=== PATIENT | male | born 1995 | race Caucasian/White ===

== ENCOUNTER 2019-01-08 01:23 | Outpatient (CLI) | payer OTHER, BC, SELFPAY ==
--- NOTE | 2019-01-08 14:00 | DI.US_ITS ---
EXAM: US HERNIA CLINICAL HISTORY: RT INGUINAL HERNIA K40.90, NO RECENT TRAUMA, RECENT HEAVY LIFTING, NOTICED LUMP 2 WEEKS AGO, H/O HERNIA AT 1 YEARS OLD TECHNIQUE: Ultrasound performed using standard protocol. COMPARISON: No exams were available for comparison FINDINGS: There is a fatty-containing inguinal hernia measuring 2 x 0.6 x 2.8 cm. No fluid is seen. There are no signs to suggest strangulation. IMPRESSION: Small right inguinal hernia containing fat.
== END 2019-01-08 01:43 ==
PROVIDERS: PCP Nurse Practitioner Family; Visit Provider Nurse Practitioner Family
DX: K40.90 Unilateral inguinal hernia, without obstruction or gangrene, not specified as recurrent (principal)
CPT/HCPCS: 76857

== ENCOUNTER 2019-01-22 08:51 | Day surgery (SDC) | payer OTHER, BC, SELFPAY ==
[2019-01-22] VITALS (9 sets, daily range): BP systolic 138–155; BP diastolic 61–103; PULSE 52–75; RESP 12–20; TEMP 36.1–36.6; O2SAT 95–100
[2019-01-22] MEDS: Lactated Ringers 1,000 ML 80 ML IV (09:41)
--- NOTE | 2019-01-22 10:29 | PDOC.DSDIS_ITS ---
Discharge Plan Disposition Patient Disposition: HOME Condition: Good Discharge Details Reason For Visit: Right inguinal hernia Attending Provider: Vaishali Woo Primary Care Provider: Chris Guerrero Home Meds and New Rx's Prescriptions: New hydrocodone-acetaminophen 5-325 mg tablet 1 - 2 tab PO Q6H PRN (Reason: pain) Qty: 20 RF: 0 Discharge Instructions Additional Instructions: The top bandage can be removed tomorrow. The steri strips will usually stick for about a week. When the edges start to curl up, they can be removed. It is okay to shower tomorrow, the water can run over the steri strips Do not swim or soak in a tub for two weeks Call for any concerns including fever, increased pain, vomiting, incision redness or drainage. Do not lift more than 15 pounds for four weeks. Walking and stairs are fine. Do not drive if on narcotic pain meds or if limited by pain. May use Tylenol alternating with ibuprofen for pain control. Ice is also an option. The maximum dose for Tylenol is 4000 mg/day. May use ibuprofen 800 mg every 8 hours as needed. If concerned about constipation, you may use a stool softener or milk of magnesia. Referrals: Vaishali Woo MD [ [facility] STAFF PHYSICIAN] - (Return in 10-14 days for a postoperative check) Activity:: Do not lift more than 15 pounds Remove Dressings/Wound Care:: 24 hours Shower/Bathe:: 24 hours Diet:: As Tolerated DS: Diagnosis Discharge Diagnosis (1) Right inguinal hernia: Status: Acute
[2019-01-22] MEDS: ceFAZolin 2 GM/50 ML BAG IVPB (10:40)
[2019-01-22] MEDS: Bupivacaine 0.25% Pres-Free 30 ML VIAL (10:47)
[2019-01-22] MEDS: Bupivacaine LIPOSOME/PF 133 MG/10 ML VIAL IJ (10:47)
[2019-01-22] MEDS: fentaNYL 100 MCG/2 ML VIAL IVP (13:00)
--- NOTE | 2019-01-22 13:11 | ROE_ITS ---
DATE OF PROCEDURE: January 22, 2019 PREOPERATIVE DIAGNOSIS: Recurrent right inguinal hernia. POSTOPERATIVE DIAGNOSIS: Same. PROCEDURE: Right inguinal hernia repair with mesh. SURGEON: Vaishali Woo M.D. PINSETTER MECHANIC HELPER: Joy Higuera PA-C ANESTHESIA: General, local and TAP block. INDICATIONS: This is a 23-year-old man who has a moderate-sized, reducible right inguinal hernia. He had this repaired at age 1 or 1. PROCEDURE: He was placed supine on the operating table and after induction of general anesthetic, had a right TAP block placed by Anesthesia. His right groin was then prepped and draped sterilely. The prior incision was identified and infiltrated with 1% Lidocaine with epinephrine. An incision was made and the subcutaneous tissue divided with cautery down to the external oblique fascia. A vein encountered was clamped, divided and ligated with a #3-0 Vicryl tie. The tissue was not completely normal, consistent with his prior surgery. The planes were somewhat scarred, although still definitely identifiable. A small incision was made in the external oblique fascia and extended bluntly with Metzenbaum scissors to the external inguinal ring. This was also extended laterally. The spermatic cord was dissected up from the floor of the inguinal canal at the level of the pubic tubercle. Again, it was somewhat slower than normal due to scarring. The spermatic cord was encircled with a [place] drain. Dissection revealed preperitoneal fat that had herniated through the internal ring with a small peritoneal sac associated. This was dissected up into the internal ring and reduced. A medium mesh plug was sutured to the inguinal ligament, medially and up to the transversus abdominis muscle. A flat sheet of mesh was then placed on the floor of the inguinal canal and sutured in position in standard Toya fashion. There was good hemostasis. The external oblique fascia was closed with a running #3-0 Vicryl stitch, as was Kiran's fascia and then the skin closed with a running #4-0 Monocryl subcuticular stitch. He tolerated the procedure well and was stable to recovery. cc: Chris Guerrero N.P.
== END 2019-01-22 14:55 | disposition home or self-care (01) ==
PROVIDERS: PCP Nurse Practitioner Family; Visit Provider Surgery
PROC: (CPT 49520; principal; 2019-01-22 11:00)
DX: K40.91 Unilateral inguinal hernia, without obstruction or gangrene, recurrent (principal); G89.18 Other acute postprocedural pain
CPT/HCPCS: 49520; 76942; C1781; J0690; J1885; J2405; J3010

== ENCOUNTER 2021-08-30 03:17 | Outpatient (CLI) | payer OTHER, SELFPAY ==
[2021-08-30 11:23] LABS: Source Nasal/Nares
[2021-08-30 14:01] LABS: COVID-19 PCR Negative (Negative)
== END 2021-08-30 03:18 | disposition home or self-care (01) ==
PROVIDERS: PCP Nurse Practitioner Family; Visit Provider Surgery
DX: Z20.822 Contact with and (suspected) exposure to COVID-19 (principal); Z01.818 Encounter for other preprocedural examination
CPT/HCPCS: 87635

== ENCOUNTER 2021-09-01 09:45 | Day surgery (SDC) | payer OTHER, SELFPAY ==
[2021-09-01] VITALS (9 sets, daily range): BP systolic 102–139; BP diastolic 62–93; PULSE 53–73; RESP 13–16; TEMP 36.1–36.5; O2SAT 99–100; BMI 21.4
--- NOTE | 2021-09-01 06:54 | W.PM.OP ---
Date of service: 09/01/21 Time of Service: 11:51 Operative Note Operative Note DATE OF PROCEDURE: 09/01/21 PRE-OP DIAGNOSIS: Left inguinal hernia Left indirect inguinal hernia PROCEDURE: Left inguinal hernia repair with mesh SURGEON: Basilia Hremosillo BAND REAMER MACHINE OPERATOR: Joy Higuera Refer to Anesthesia Record ESTIMATED BLOOD LOSS: 15 PATHOLOGY: none sent COMPLICATIONS: None Patient was transported to: PACU Patient's condition: stable Implants: BARD Mesh: LOT- [id number] REF- [id number] 2025-10-31 Indications: Mr. Busch is a healthy 26-year-old male who comes in with a left inguinal hernia for the last year.? It has slowly gotten larger and now has become uncomfortable.? He has had multiple surgeries in the past including 2 right inguinal hernia repairs.? He has never had any issues with the anesthesia.? We discussed the procedure in detail as well as the risks, benefits and complications.? I reviewed a nerve block with him as well as pain control after surgery. Risks, benefits and complications have been reviewed. Complications include but are not limited to bleeding, infection, injury to vas, vessels and nerves, injury to bowel and adverse reaction to medications. Questions were entertained and answered to their satisfaction and they wished to proceed. Proceed with left inguinal hernia repair with mesh Findings: indirect hernia Procedure Description: After informed consent was obtained the patient was taken to the operating room and placed in a supine position. Monitors and SCDs were applied and a timeout was done. The patient's name, date of , procedure type, procedure site, allergies to medications, preoperative antibiotic, and DVT prophylaxis were all reviewed. Fire risk was assessed. Next anesthesia did a tap block on the left side under ultrasound guidance. Please see their separate dictation. Once anesthesia was done the abdomen was prepped and draped in a sterile surgical fashion. 0.25% Marcaine was injected into the dermis in the left lower quadrant. An incision was made with a 15 blade in the left lower quadrant. Dissection was done with cautery through the subcutaneous tissues and Kiran's fascia down to the external oblique fascia. The external ring was identified and the external oblique fascia was opened sharply through the external ring. The cut fascia was grasped with hemostats the cord structures were identified and a Ant drain was placed around them. The ilioinguinal nerve was identified and cut. The cremasteric muscle was dissected away from the cord structures using both cautery and blunt dissection. A hernia sac was identified and removed from the cord structures using blunt dissection. The hernia sac was suture ligated and amputated. The remnant was pushed back into the peritoneum. A flat piece of mesh was then attached to the lacunar ligament using a 2-0 Prolene double armed suture. The mesh was secured laterally and medially with a 2-0 Prolene, with a running suture. The tails of the mesh were wrapped around the cord structures effectively cinching down the internal ring. Once the mesh was secured the tissues were irrigated with some normal saline. No bleeding was identified. The external oblique fascia was re-approximated using 2-0 Vicryl running suture. The Kiran's fascia was re-approximated using interrupted 3-0 Vicryl. The dermis was re-approximated with a running 4-0 Monocryl. The skin was cleaned and dried and skin affix was applied. The patient was woken up and taken back to recovery in stable condition. There were no immediate complications. Sponge, instrument and needle counts were correct at the end of the case x2.
--- NOTE | 2021-09-01 06:56 | PDOC.DSDIS_ITS ---
Discharge Plan Disposition Patient Disposition: HOME Condition: Good Discharge Details Reason For Visit: LIH repair Attending Provider: Basilia Hermosillo Primary Care Provider: Chris Guerrero Home Meds and New Rx's Prescriptions: No Action No Known Home Meds Discharge Instructions Instructions: Open Herniorrhaphy (DC) Additional Instructions: Activity at Home after surgery: 1. Make sure you walk outside at least 4 times per day 2. You should be able to climb a flight of stairs 3. No driving while in pain or taking pain medications 4. No strenuous activity or heavy lifting for 4 weeks (open surgery) Diet, Nutrition, & wound healin. Avoid alcohol until after you are recovered from your surgery 2. Make sure to eat plenty of lean protein (meat, fish, eggs, cottage cheese, beans) 3. Eat a variety of fruits and vegetables. Eat plenty of high fiber foods to avoid constipation. 4. Drink plenty of liquids to stay hydrated and avoid constipation Pain Medications: 1. Tylenol 650mg every 6 hours as needed and Ibuprofen 600 mg every 6 hours as needed. You may alternate between the 2 medications every 3 hours 2. If a narcotic has been prescribed take as directed only for breakthrough pain For Constipation: 1. Take Milk of Magnesia or MiraLax as needed for constipation Other: 1. You may shower daily. Do not scrub the incisions 2. Do not soak the incisions for 1 week 3. You may alternate ice and heat as needed for pain and swelling Wound Care: 1. Keep the incisions clean and dry Please call our office if you develop: 1. Fevers >101.5 2. Nausea or Vomiting 3. Worsening pain 4. Redness and thick discharge from the wounds If after hours please call the Hospital at and ask to speak to the on-call surgeon Referrals: Basilia Hermosillo MD [ [facility] STAFF PHYSICIAN] - Activity:: see above Remove Dressings/Wound Care:: Do Not Remove Shower/Bathe:: 24 hours Diet:: As Tolerated Discharge Orders Discharge Orders: Discharge Order (Routine); Ordered 09/01/21 Ordered By: Basilia Hermosillo
[2021-09-01] MEDS: Celecoxib 200 MG CAP PO (10:14)
[2021-09-01] MEDS: Gabapentin 300 MG CAP PO (10:14)
[2021-09-01] MEDS: Acetaminophen 500 MG TAB 1000 MG PO (10:14)
[2021-09-01] MEDS: Lactated Ringers 1,000 ML 80 ML IV (10:27)
--- NOTE | 2021-09-01 10:29 | W.ANESPRE ---
General Info Date of Service Date Performed: 09/01/21 Height: 5 ft 7 in Weight: 62 kg Body Mass Index (BMI): 21.4 Surgical Procedure: Operation Date: 09/01/21 11:10 Proposed Procedure Side Surgeon p Herniorrhaphy Inguinal w/Mesh Left Basilia Hermosillo MD Meds Allergies and Home Medications Allergies Allergy/AdvReac Type Severity Reaction Status Date / Time No Known Allergies Allergy Verified 09/01/21 10:03 Home Medication Medication Instructions Recorded Unknown [No Known Home Meds] 08/17/21 Current Visit Medications: Current Medications Generic Name Dose Route Start Last Admin Trade Name Freq PRN Reason Stop Dose Admin Acetaminophen 1,000 mg 09/01/21 06:00 09/01/21 10:14 Acetaminophen 500 Mg Tab PO 09/30/21 23:59 1,000 mg PREOP TAMIKA Administration Celecoxib 200 mg 09/01/21 06:00 09/01/21 10:14 Celecoxib 200 Mg Cap PO 09/30/21 23:59 200 mg PREOP TAMIKA Administration Gabapentin 300 mg 09/01/21 06:00 09/01/21 10:14 Gabapentin 300 Mg Cap PO 09/30/21 23:59 300 mg PREOP TAMIKA Administration Ringer's Solution 1,000 mls @ 80 mls/hr 09/01/21 06:00 09/01/21 10:27 IV 09/30/21 23:59 80 mls/hr INFUSION TAMIKA Administration Cefazolin Sodium/Dextrose 2 gm in 50 mls @ 100 mls/hr 09/01/21 06:00 Ancef Duplex IVPB 09/30/21 23:59 PREOP TAMIKA Ondansetron HCl 4 mg/ Sodium 52 mls @ 200 mls/hr 09/01/21 06:57 Chloride IVPB Q6H PRN PRN IV Miscellaneous Supplies 1 each 09/01/21 06:00 Iv Access IV 09/30/21 23:59 DIRECTED TAMIKA Sodium Chloride 0 ml 09/01/21 06:00 Normal Saline Flush 10 Ml Syr IV 09/30/21 23:59 PRN PRN Sodium Chloride 0 ml 09/01/21 06:00 Normal Saline 10 Ml Vial IJ 09/30/21 23:59 DIRECTED PRN Sterile Water 0 ml 09/01/21 06:00 Water,Injection,Sterile 10 Ml Vial IJ 09/30/21 23:59 DIRECTED PRN Tramadol HCl 50 mg 09/01/21 06:57 Tramadol 50 Mg Tab PO Q6H PRN PRN Pain PFSH Active Problems Active Problems: Problem Status Onset Code Left inguinal hernia K40.90 Medical History Medical History ACTH deficiency pt. denies this Hypertension Hypospadias in male Pilonidal cyst Postop check Right inguinal hernia Smoking Vesico-ureteral reflux Surgical History Surgical History Excision, Pilonidal Cyst (10/11/17) History of right inguinal hernia repair Repair, Hypospadious Tobacco Smoking/Tobacco Use Status: Current every day Tobacco Type: cigarettes Smoking cigarettes per day: 20 Alcohol Alcohol Intake: current Alcohol intake frequency: a few times a week Alcohol type: beer Substance Use Substance use: Daily Substance use type: marijuana Details: Instructed not use the moring of surgery. Smoked marijuana yesterday 08.31.21 Vital Signs and Lab Results Vital Signs Most Recent Vital Signs in EMR: Most Recent Vital Signs Temp Pulse Resp BP Pulse Ox 36.5 C 73 16 139/93 H 99 09/01/21 09:59 09/01/21 09:59 09/01/21 09:59 09/01/21 09:59 09/01/21 09:59 Lab Results Blood Type / Crossmatch: No Data to Display Complete Blood Count: No Data to Display Complete Metabolic Panel: No Data to Display Liver Function Panel: No Data to Display Coagulation Panel: No Data to Display Cardiac Panel: No Data to Display Arterial Blood Gas: No Data to Display Venous Blood Gas: No Data to Display Pancreas Panel: No Data to Display Thyroid Panel: No Data to Display Infectious Disease: Coronavirus (COVID-19)(PCR) Negative (Negative) 08/30/21 10:40 Coronavirus 2019 Source Nasal/Nares 08/30/21 10:40 Blood Cultures: No Data to Display Toxicology Panel: No Data to Display Anesthesia Assessment and Plan Anesthesia History Personal History: Delayed Emergence Family History: No Family History of Anesthesia Complications Exercise Tolerance Exercise Tolerance: Metabolic Equivalents>4 Pertinent Negatives Pertinent Negatives: No Symptoms of GERD, No Major Cardiovascular Symptoms or Complaints and No Major Pulmonary Symptoms or Complaints Cardiac & Pulmonary Exam Cardiac Exam: Normal S1/S2 Heart Sounds Pulmonary Exam: Clear Bilateral Breath Sounds Implantable Cardiac Device Does patient have a Pacemaker or an ICD?: No Airway Exam Known Difficult Airway: No Mallampati Class: 1 Mouth Opening: Normal (> 3cm) Thyromental Distance: Greater than 3 cm Facial Hair: Full Don Neck Range of Motion: Full ROM Neck Circumference: Normal Teeth Condition: Normal Dentition ASA Classification ASA Score: ASA 2 Emergency Case?: No NPO Status NPO Status: NPO Clears >2 hours, Solids >8 hours Anesthesia Plan Resuscitation Status: Full Code Anesthesia Technique: General Anesthesia Airway Planned: LMA Pain Management: Surgeon and patient request nerve block Monitors Used: Standard Monitors
[2021-09-01] MEDS: ceFAZolin 2 GM/50 ML BAG IVPB (10:50)
--- NOTE | 2021-09-01 11:07 | W.ANESNERVE ---
Nerve Block Single Injection Procedure Date and Time Date Performed: 09/01/21 Procedure Start: 10:58 Location Where Procedure Performed Procedure Location: Operating Room Procedure Stop: 11:04 Reason Performed: Postoperative Analgesia Requesting Provider: Basilia Hermosillo Timeout Performed Timeout Performed: Yes Monitoring Used ECG, Blood Pressure, SpO2 and ETCO2 Sterility Sterility: Hand Hygiene, Surgical Cap, Surgical Mask, Sterile Gloves, Sterile Drape/Sheet and Chlorhexidine Sedation Given During Procedure Sedation Given (Indicate Dose Given): No Sedation given Patient Mental Status Patient Mental Status: Performed under general anesthesia Nerve Block 1st Nerve Block: Laterality: Left Block Type: TAP Unilateral Needle / Catheter Used: 100mm SonoPlex II Local Anesthetic Bolus (Indicate Dose Given): None and Bupivacaine 0.375% Dose:: 30 mL Additives (Indicate Dose Given): Precedex Dose:: 30 mcg Ultrasound: Sterile probe cover and gel used Ultrasound Image Saved?: Yes Nerve Stimulator: Not Used Paresthesia: None Procedure Tolerated: No Complications Procedure Outcome: Successful Performed By: Blas Pascual
--- NOTE | 2021-09-01 13:22 | W.ANESPOSTOP ---
Postoperative Evaluation Date, Time and Location Date Performed: 09/01/21 Time Performed: 13:22 Patient Location: Day Surgery Unit Vital Signs Most Recent Imported Vital Signs: Most Recent Vital Signs Temp Pulse Resp BP Pulse Ox 36.1 C L 67 16 119/76 100 09/01/21 12:53 09/01/21 12:53 09/01/21 12:53 09/01/21 12:53 09/01/21 12:53 Pain Score Most Recent Pain Score: Most Recent Pain Score Pain Level 0 09/01/21 12:53 Assessment Mental Status: Awake (Alert & Oriented to Patient Baseline) Airway and Respiratory Function: Patent airway with normal (patient baseline) respiratory exam Cardiovascular Function: Hemodynamically Stable Hydration Status: Adequately Hydrated Nausea & Vomiting: No Nausea or Vomiting Pain: Pt. Denies Any Pain Peripheral Nerve Block: Regional nerve block not resolved at time of post operative discharge
== END 2021-09-01 13:56 | disposition home or self-care (01) ==
PROVIDERS: PCP Nurse Practitioner Family; Visit Provider Surgery
PROC: (CPT 49505; principal; 2021-09-01 11:00)
DX: I10 Essential (primary) hypertension (principal); F17.210 Nicotine dependence, cigarettes, uncomplicated; K40.90 Unilateral inguinal hernia, without obstruction or gangrene, not specified as recurrent
CPT/HCPCS: 49505; 76942; C1781; J0690; J1885; J2250